=== PATIENT | male | born 1995 | race Hispanic/Latino ===

== ENCOUNTER 2018-05-02 15:39 | Emergency (ER) | payer OTHER ==
[2018-05-02 16:22] LABS: Absolute Lymphocytes (CBC) 1.6 K/uL (0.7-4.9); Absolute Monocytes 1.4 K/uL (0.1-1.3); Absolute Neutrophil 14.7 K/uL (1.8-8.0); Basophils % 0.1 % (0-1.3); Lymphocytes % 8.9 % (15.3-44.8); MCH 30.8 pg (27.0-35.0); MCV 92.5 fL (80-100); MPV 8.6 fL (7.6-11.3); Monocytes % 7.9 % (3.3-12.3); RBC Red Blood Cell Count 5.08 M/uL (4.33-5.43)
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
[2018-05-02 16:33] LABS: BUN Blood Urea Nitrogen 10 mg/dL (7-18); Bicarbonate 27 mmol/L (21-32); Glucose Level 95 mg/dL (74-106); Potassium 3.7 mmol/L (3.5-5.1); Sodium Level 137 mmol/L (136-145)
[2018-05-02] MEDS ORDERED: IBUPROFEN 400 MG TAB ONE (16:39)
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
[2018-05-02] MEDS ORDERED: TETANUS & DIPHTHERIA TOX,ADULT 0.5 ML VIAL ONE (17:42)
== END 2018-05-02 18:18 | disposition home or self-care (01) ==
LOC: ER 15:39
DX: S00.93XA Contusion of unspecified part of head, initial encounter (principal); Y04.8XXA Assault by other bodily force, initial encounter; Y93.89 Activity, other specified; Y92.149 Unspecified place in prison as the place of occurrence of the external cause; Z23 Encounter for immunization; Z91.013 Allergy to seafood
CPT/HCPCS: 36415; 70450; 70486; 71045; 72125; 76377; 80048; 85025; 86850; 86900; 86901; 90714; 99285